=== PATIENT | female | born 1965 | race Caucasian/White ===

== ENCOUNTER 2023-07-20 07:09 | Outpatient (CLI) | payer OTHER, SELFPAY | END 2023-07-20 07:10 | disposition home or self-care (01) | LOC: NFLDREF 07-24 11:39 | PROVIDERS: PCP Family Medicine; Referring Provider Family Medicine; Visit Provider Family Medicine | DX: R35.0 Frequency of micturition (principal); N39.0 Urinary tract infection, site not specified | CPT/HCPCS: 87086; 87186 ==

== ENCOUNTER 2023-07-25 14:27 | Outpatient (CLI) | payer OTHER, SELFPAY | END 2023-07-25 14:28 | disposition home or self-care (01) | LOC: NFLDREF 07-28 12:33 | PROVIDERS: PCP Family Medicine; Referring Provider Family Medicine; Visit Provider Family Medicine | DX: N89.8 Other specified noninflammatory disorders of vagina (principal); N30.01 Acute cystitis with hematuria; B96.20 Unspecified Escherichia coli [E. coli] as the cause of diseases classified elsewhere | CPT/HCPCS: 87086; 87186 ==